=== PATIENT | female | born 1935 | race Caucasian/White ===

== ENCOUNTER 2017-08-05 08:59 | Emergency (ER) | payer MEDICARE, OTHER ==
[~2017-08-05] VITALS: Ht 152.4 cm; Wt 61.7 kg
[~2017-08-05 08:59] MED LIST: ASPIRIN EC325 MG PO; ASPIRIN EC81 MG PO; CALCIUM + VITA1 EACH PO; CALCIUM 600 +1 EACH PO; CARBIDOPA-LEVO1 EAC1 PO; CARBIDOPA-LEVO1 EAC4 PO; COLCRYS0.6 MG PO; DILTIAZEM ER180 MG PO; FLAX SEED OIL1000 MG PO; FLAXSEED OIL1000 M1 PO; HYDROCHLOROTHIA25 MG PO; IBUPROFEN200 M1 PO; INDOMETHACIN50 MG PO; LEVOTHYROXINE50 MCG PO; LODOSYN25 MG PO; OMEPRAZOLE20 MG PO; POTASSIUM CHLO10 MEQ PO; POTASSIUM CHLO20 ME1 PO; REFRESH P.M. O3.5 GM OU; SPIRONOLACTONE50 MG PO; SUPER B COMPLE150 MG PO; TYLENOL325 MG PO; ULTRAM50 MG PO; VITAMIN D250000 UNIT PO; VITAMIN D350000 UNIT PO; ZETIA10 MG PO; ZYLOPRIM300 MG PO
[2017-08-05] MEDS ORDERED: KEFLEX500 MG PO (09:42)
[2017-10-01] MEDS ORDERED: DISOPYRAMIDE P150 MG PO (11:54)
[2017-10-01] MEDS ORDERED: ALENDRONATE SOD70 MG PO (11:54)
[2017-10-01] MEDS ORDERED: ELIQUIS2.5 MG PO (11:55)
[2017-10-01] MEDS ORDERED: MAG-OXIDE400 MG PO (11:55)
== END 2017-08-05 09:53 | disposition home or self-care (01) ==
LOC: ED 08:59
DX: S90.861A Insect bite (nonvenomous), right foot, initial encounter (principal); L03.115 Cellulitis of right lower limb; E03.9 Hypothyroidism, unspecified; F17.200 Nicotine dependence, unspecified, uncomplicated; Z90.49 Acquired absence of other specified parts of digestive tract; Z90.710 Acquired absence of both cervix and uterus; Z88.0 Allergy status to penicillin; Z88.2 Allergy status to sulfonamides; Z88.5 Allergy status to narcotic agent; Z88.8 Allergy status to other drugs, medicaments and biological substances; Z91.09 Other allergy status, other than to drugs and biological substances; Z79.899 Other long term (current) drug therapy; Z79.82 Long term (current) use of aspirin; W57.XXXA Bitten or stung by nonvenomous insect and other nonvenomous arthropods, initial encounter
CPT/HCPCS: 99283

== ENCOUNTER 2017-10-21 17:22 | Emergency (ER) | payer MEDICARE, OTHER ==
[~2017-10-21] VITALS: Ht 152.4 cm; Wt 59.4 kg
[~2017-10-21 17:22] MED LIST changes: +ALENDRONATE SOD70 MG PO; +DISOPYRAMIDE P150 MG PO; +ELIQUIS2.5 MG PO; +KEFLEX500 MG PO; +MAG-OXIDE400 MG PO
[2017-10-21] MEDS ORDERED: FLAGYL500 MG PO (17:47)
[2017-10-21] MEDS ORDERED: HYDROXYZINE HCL25 MG PO (21:12)
== END 2017-10-21 21:31 | disposition home or self-care (01) ==
LOC: ED 17:22
DX: L27.0 Generalized skin eruption due to drugs and medicaments taken internally (principal); T37.8X5A Adverse effect of other specified systemic anti-infectives and antiparasitics, initial encounter; E03.9 Hypothyroidism, unspecified; G20 Parkinson's disease; Z88.0 Allergy status to penicillin; Z88.2 Allergy status to sulfonamides; Z88.5 Allergy status to narcotic agent; Z88.8 Allergy status to other drugs, medicaments and biological substances; Z79.899 Other long term (current) drug therapy
CPT/HCPCS: 80053; 85025; 96372; 99283; J3410

== ENCOUNTER 2018-12-14 12:21 | Emergency (ER) | payer MEDICARE, OTHER ==
[~2018-12-14] VITALS: Ht 152.4 cm; Wt 59.9 kg
[~2018-12-14 12:21] MED LIST changes: +FLAGYL500 MG PO; +HYDROXYZINE HCL25 MG PO
[2018-12-14] MEDS ORDERED: PRESERVISION A1 EAC3 PO (12:33)
[2018-12-14] MEDS ORDERED: MELATIN3 MG PO (12:33)
[2018-12-14] MEDS ORDERED: REQUIP2 MG PO (12:34)
[2018-12-14] MEDS ORDERED: REFRESH OPTIVE1 EAC1 OPTH (12:35)
[2018-12-14] MEDS ORDERED: ONDANSETRON ODT8 MG PO (14:21)
--- NOTE | 2018-12-14 18:39 | EKG ---
[facility] [address] [facility] [place], [place] [address] Signed Accelerated Junctional rhythm Abnormal ECG Confirmed by TUAN RAMIREZ MD ([id number]) on 12/14/2018 6:38:54 PM Electronically Signed By: TUAN RAMIREZ MD 12/14/18 1839 PATIENT NAME: MAURI VALDES Electrocardiogram DATE OF : 35 PHYSICIAN: TUAN RAMIREZ MD REPORT #: [id number] REPORT IS CONFIDENTIAL AND NOT TO BE RELEASED WITHOUT AUTHORIZATION
== END 2018-12-14 14:58 | disposition home or self-care (01) ==
LOC: ED 12:21
DX: R07.89 Other chest pain (principal); E03.9 Hypothyroidism, unspecified; I48.91 Unspecified atrial fibrillation; G20 Parkinson's disease; Z88.0 Allergy status to penicillin; Z88.2 Allergy status to sulfonamides; Z88.5 Allergy status to narcotic agent; Z91.048 Other nonmedicinal substance allergy status; Z88.8 Allergy status to other drugs, medicaments and biological substances; Z79.899 Other long term (current) drug therapy
CPT/HCPCS: 71045; 80053; 83880; 84484; 85025; 93005; 93010; 96374; 99285-25; J2405

== ENCOUNTER 2019-03-21 14:14 | Emergency (ER) | payer MEDICARE, OTHER ==
[~2019-03-21] VITALS: Ht 157.5 cm; Wt 58.5 kg
[~2019-03-21 14:14] MED LIST changes: +MELATIN3 MG PO; +ONDANSETRON ODT8 MG PO; +PRESERVISION A1 EAC3 PO; +REFRESH OPTIVE1 EAC1 OPTH; +REQUIP2 MG PO
--- NOTE | 2019-03-22 21:32 | EKG ---
[facility] [address] [facility] [place] [address] Signed Normal sinus rhythm Normal ECG Confirmed by JODY CROCKETT MD ([id number]) on 03/22/2019 9:32:42 PM Electronically Signed By: JODY CROCKETT MD 03/22/19 2132 PATIENT NAME: MAURI VALDES Electrocardiogram DATE OF : 35 PHYSICIAN: JODY CROCKETT MD REPORT #: [id number] REPORT IS CONFIDENTIAL AND NOT TO BE RELEASED WITHOUT AUTHORIZATION
--- NOTE | 2019-03-22 21:33 | EKG ---
[facility] [address] [facility] [place], [place] [address] Signed Normal sinus rhythm Normal ECG When compared with ECG of 21-MAR-2019 14:16, (Unconfirmed) No significant change was found Confirmed by JODY CROCKETT MD ([id number]) on 03/22/2019 9:33:03 PM Electronically Signed By: JODY CROCKETT MD 03/22/19 2133 PATIENT NAME: MAURI VALDES Electrocardiogram DATE OF : 35 PHYSICIAN: JODY CROCKETT MD REPORT #: [id number] REPORT IS CONFIDENTIAL AND NOT TO BE RELEASED WITHOUT AUTHORIZATION
== END 2019-03-21 18:57 | disposition home or self-care (01) ==
LOC: ED 14:14
DX: R07.89 Other chest pain (principal); E03.9 Hypothyroidism, unspecified; I48.91 Unspecified atrial fibrillation; G20 Parkinson's disease; Z90.49 Acquired absence of other specified parts of digestive tract; Z90.710 Acquired absence of both cervix and uterus; Z88.0 Allergy status to penicillin; Z88.2 Allergy status to sulfonamides; Z88.5 Allergy status to narcotic agent; Z88.8 Allergy status to other drugs, medicaments and biological substances; Z91.048 Other nonmedicinal substance allergy status; Z79.899 Other long term (current) drug therapy
CPT/HCPCS: 36415; 71045; 80053; 83735; 84484; 85025; 85610; 93005; 93010; 99285-25

== ENCOUNTER 2019-04-01 01:57 | Emergency (ER) | payer MEDICARE, OTHER ==
[~2019-04-01] VITALS: Ht 157.5 cm; Wt 58.5 kg
--- OUTSIDE RECORDS SUMMARY | 2019-04-01 02:00 | XMS ---
PreManage Notification: MAURI VALDES Security Kinesiologist Events No recent Security Events currently on file CRITERIA MET - [facility] - 2 Visits in 30 Days CARE PROVIDERS MARIMAR GOODSON Internal Medicine: Cardiovascular Disease Current PHONE: [phone] Castro Phipps MD Primary Care Current PHONE: Unknown oranahy Douglas or Hand Glass Cutter Current PHONE: Unknown Nae PHIPPS Current PHONE: Unknown Norman has no Care Guidelines for this patient. Bernardo VISIT COUNT (12 MO.) 1 [facility] 3 ROLDAN Salvador TOTAL 4 NOTE: Visits indicate total known visits. ED/UCC VISIT TRACKING (12 MO.) 04/01/2019 01:57 R[facility] Cooper [place] TYPE: Emergency COMPLAINT: - NUMBNESS 03/21/2019 14:15 [facility] [place] TYPE: Emergency COMPLAINT: - CHEST PAIN DIAGNOSES: - Parkinson's disease - Other chest pain - Hypothyroidism, unspecified - Allergy status to sulfonamides status - Allergy status to other drugs, medicaments and biological substances status - Unspecified atrial fibrillation - Other nonmedicinal substance allergy status - Acquired absence of both cervix and uterus - Other watermelon harvesting supervisor (current) drug therapy - Precordial pain - Acquired absence of other specified parts of digestive tract - Allergy status to narcotic agent status - Allergy status to penicillin 01/11/2019 03:55 [facility] [place] GROSS TYPE: Emergency DIAGNOSES: - Hypocalcemia - Weakness - Dizziness - Other pancytopenia 12/14/2018 12:22 ROLDAN Jacobs TYPE: Emergency COMPLAINT: - CHEST HEAVYNESS DIAGNOSES: - Allergy status to penicillin - Other chest pain - Other watermelon harvesting supervisor (current) drug therapy - Allergy status to other drugs, medicaments and biological substances status - Hypothyroidism, unspecified - Allergy status to narcotic agent status - Unspecified atrial fibrillation - Other nonmedicinal substance allergy status - Parkinson's disease - Allergy status to sulfonamides status INPATIENT VISIT TRACKING (12 MO.) 01/11/2019 03:55 [facility] [place] GROSS TYPE: Medical Surgical DIAGNOSES: - Parkinson's disease - Other pancytopenia - Hypocalcemia [id number]
[2019-04-01] MEDS ORDERED: PRESERVISION A1 EACH PO (02:18)
[2019-04-01] MEDS ORDERED: CARBIDOPA-LEVO1 EAC5 PO (02:21)
--- NOTE | 2019-04-01 16:12 | EKG ---
[facility] [address] [facility] [place], [place] [address] Signed Normal sinus rhythm Normal ECG When compared with ECG of 21-MAR-2019 15:27, No significant change was found Confirmed by ELIZABETH VILLEDA DO ([id number]) on 04/01/2019 4:12:31 PM Electronically Signed By: ELIZABETH VILLEDA DO 04/01/19 1612 PATIENT NAME: KEISHAMAURI KEY Electrocardiogram DATE OF : 35 PHYSICIAN: ELIZABETH VILLEDA DO REPORT #: [id number] REPORT IS CONFIDENTIAL AND NOT TO BE RELEASED WITHOUT AUTHORIZATION
== END 2019-04-01 05:00 | disposition home or self-care (01) ==
LOC: ED 01:57
DX: R53.1 Weakness (principal); E03.9 Hypothyroidism, unspecified; I48.91 Unspecified atrial fibrillation; Z88.0 Allergy status to penicillin; Z88.2 Allergy status to sulfonamides; Z88.8 Allergy status to other drugs, medicaments and biological substances; Z88.5 Allergy status to narcotic agent; Z79.899 Other long term (current) drug therapy
CPT/HCPCS: 70450; 80053; 81001; 85025; 85610; 85730; 87088; 93005; 93010; 99284-25

== ENCOUNTER 2019-09-03 10:16 | Emergency (ER) | payer MEDICARE, OTHER ==
[~2019-09-03] VITALS: Ht 157.5 cm; Wt 56.7 kg
[~2019-09-03 10:16] MED LIST changes: +CARBIDOPA-LEVO1 EAC5 PO; +PRESERVISION A1 EACH PO; +PREVACID15 M1 PO
--- OUTSIDE RECORDS SUMMARY | 2019-09-03 10:22 | XMS ---
PreManage Notification: MAURI VALDES Security Police Pilot Events No recent Security Events currently on file CRITERIA MET - [facility] CARE PROVIDERS MARIMAR GOODSON Internal Medicine: Cardiovascular Disease Current PHONE: [phone] JODY CROCKETT Internal Medicine 04/01/2019-Current LUIS DANIEL PHONE: [phone] Castro Phipps MD Primary Care Current PHONE: Unknown oranahy Case or Small Animal Veterinarian Current PHONE: Unknown Nae PHIPPS Current PHONE: Unknown Norman has no Care Guidelines for this patient. Care History Medical/Surgical 04/01/2019 [facility] - Patient is currently established with [facility]. If patient is seen in the ED during business hours. Please contact CHWs at [facility]. - Care Recommendation: This patient has had 5 or more Emergency Department visits in the last 12 months.\T\nbsp; Patient requires education on the scope and purpose of the ED as an acute care provider not a Primary Care Provider and should not be utilized for chronic conditions.\T\nbsp; These are guidelines and the provider should exercise clinical judgment when providing care. E.D. VISIT COUNT (12 MO.) 2 [facility] 5 [facility]. TOTAL 7 NOTE: Visits indicate total known visits. ED/UCC VISIT TRACKING (12 MO.) 09/03/2019 10:17 ROLDAN Jacobs TYPE: Emergency COMPLAINT: - ABD PAIN 07/08/2019 07:35 [facility] [place] GROSS TYPE: Emergency DIAGNOSES: - Unspecified atrial fibrillation - Palpitations 04/28/2019 16:14 R[facility] Cooper [place] TYPE: Emergency COMPLAINT: - ANKLE INJURY DIAGNOSES: - Acquired absence of both cervix and uterus - Unspecified atrial fibrillation - Unspecified sprain of left wrist, initial encounter - Allergy status to sulfonamides status - Acquired absence of other specified parts of digestive tract - Sprain of unspecified ligament of left ankle, init encntr - Allergy status to other antibiotic agents status - Allergy status to oth drug/meds/biol subst status - Allergy status to narcotic agent status - Pain in left ankle and joints of left foot - Allergy status to penicillin - Fall on same level, unspecified, initial encounter - Hypothyroidism, unspecified - Other alf (current) drug therapy - Other nonmedicinal substance allergy status 04/01/2019 01:57 R[facility] Cooper [place] TYPE: Emergency COMPLAINT: - NUMBNESS DIAGNOSES: - Allergy status to sulfonamides status - Allergy status to oth drug/meds/biol subst status - Other remote computer terminal operator (current) drug therapy - Weakness - Hypothyroidism, unspecified - Allergy status to penicillin - Allergy status to narcotic agent status - Unspecified atrial fibrillation 03/21/2019 14:15 [facility] Cooper [place] TYPE: Emergency COMPLAINT: - CHEST PAIN DIAGNOSES: - Parkinson's disease - Other chest pain - Hypothyroidism, unspecified - Allergy status to sulfonamides status - Allergy status to oth drug/meds/biol subst status - Unspecified atrial fibrillation - Other nonmedicinal substance allergy status - Acquired absence of both cervix and uterus - Other alf (current) drug therapy - Precordial pain - Acquired absence of other specified parts of digestive tract - Allergy status to narcotic agent status - Allergy status to penicillin [facility]2019 [facility] DIAGNOSES: - Hypocalcemia - Weakness - Dizziness - Other pancytopenia 12/14/2018 12:22 ROLDAN Jacobs TYPE: Emergency COMPLAINT: - CHEST HEAVYNESS DIAGNOSES: - Allergy status to penicillin - Other chest pain - Other alf (current) drug therapy - Allergy status to oth drug/meds/biol subst status - Hypothyroidism, unspecified - Allergy status to narcotic agent status - Unspecified atrial fibrillation - Other nonmedicinal substance allergy status - Parkinson's disease - Allergy status to sulfonamides status INPATIENT VISIT TRACKING (12 MO.) 07/08/2019 07[facility] DIAGNOSES: - Dizziness and giddiness - termite control technician (current) use of anticoagulants - Hypothyroidism, unspecified - Other specified postprocedural states - Unspecified atrial fibrillation - Personal history of dis of the nervous sys and sense organs 01/11/2019 03:55 [facility] [place] GROSS TYPE: Medical Surgical DIAGNOSES: - Parkinson's disease - Other pancytopenia - Hypocalcemia [email or web address]
[2019-09-03] MEDS ORDERED: CARBIDOPA-LEVO1 EAC5 PO (14:20)
[2019-09-03] MEDS ORDERED: ONDANSETRON ODT4 MG PO (15:26)
== END 2019-09-03 15:43 | disposition home or self-care (01) ==
LOC: ED 10:16
DX: R10.32 Left lower quadrant pain (principal); E03.9 Hypothyroidism, unspecified; I48.91 Unspecified atrial fibrillation; Z88.0 Allergy status to penicillin; Z88.2 Allergy status to sulfonamides; Z88.5 Allergy status to narcotic agent; Z88.8 Allergy status to other drugs, medicaments and biological substances; Z91.048 Other nonmedicinal substance allergy status; Z88.6 Allergy status to analgesic agent; Z79.899 Other long term (current) drug therapy
CPT/HCPCS: 74176; 80053; 81001; 83690; 85025; 85610; 96361; 96374; 96375; 96376; 99284-25; J2270; J2405; J7040

== ENCOUNTER 2019-11-20 09:56 | Emergency (ER) | payer MEDICARE, OTHER ==
[~2019-11-20] VITALS: Ht 157.5 cm; Wt 56.7 kg
[~2019-11-20 09:56] MED LIST changes: +ONDANSETRON ODT4 MG PO
--- OUTSIDE RECORDS SUMMARY | 2019-11-20 10:00 | XMS ---
PreManage Notification: MAURI VALDES Security Screw Remover Events No recent Security Events currently on file CRITERIA MET - [facility] CARE PROVIDERS MARIMAR GOODSON Internal Medicine: Cardiovascular Disease Current PHONE: [phone] JODY CROCKETT Internal Medicine 04/01/2019-Current LUIS DANIEL PHONE: [phone] Castro Phipps MD Primary Care Current PHONE: Unknown oranahy Case or Reinforcing Steel Placer Current PHONE: Unknown Nae PHIPPS Current PHONE: Unknown Norman has no Care Guidelines for this patient. Care History Medical/Surgical 04/01/2019 [facility] - Patient is currently established with [facility]. If patient is seen in the ED during business hours. Please contact CHWs at [facility]. - Care Recommendation: This patient has [...] COUNT (12 MO.) 2 [facility] 6 [facility]. TOTAL 8 NOTE: Visits indicate total known visits. ED/UCC VISIT TRACKING (12 MO.) 11/20/2019 09:57 ROLDAN Jacobs TYPE: Emergency COMPLAINT: - POSS ALLERGIC REACTION 09/03/2019 10:17 ROLDAN Jacobs TYPE: Emergency COMPLAINT: - ABD PAIN DIAGNOSES: - Other senior care (current) drug therapy - Allergy status to analgesic agent status - Allergy status to sulfonamides status - Unspecified atrial fibrillation - Left lower quadrant pain - Other nonmedicinal substance allergy status - Allergy status to penicillin - Hypothyroidism, unspecified - Allergy status to oth drug/meds/biol subst status - Allergy status to narcotic agent status 07/08/2019 07:35 [facility] [place] GROSS TYPE: Emergency DIAGNOSES: - Unspecified atrial [...] initial encounter - Hypothyroidism, unspecified - Other senior care (current) drug therapy - Other nonmedicinal substance allergy status 04/01/2019 01:57 R[facility] Cooper [place] TYPE: Emergency COMPLAINT: - NUMBNESS DIAGNOSES: - Allergy status to sulfonamides status - Allergy status to oth drug/meds/biol subst status - Other intermodal truck driver (current) drug therapy - Weakness - Hypothyroidism, unspecified - Allergy status to penicillin - Allergy status to narcotic agent status - Unspecified atrial fibrillation 03/21/2019 14:15 ROLD[facility] Jacobs TYPE: Emergency COMPLAINT: - CHEST PAIN DIAGNOSES: - Parkinson's disease - Other chest pain - Hypothyroidism, unspecified - Allergy status to sulfonamides status - Allergy status to oth drug/meds/biol subst status - Unspecified atrial fibrillation - Other nonmedicinal substance allergy status - Acquired absence of both cervix and uterus - Other intermodal truck driver (current) drug therapy - Precordial pain - Acquired absence of other specified parts of digestive tract - Allergy status to narcotic agent status - Allergy status to penicillin [facility]11[facility]2019 03[facility] DIAGNOSES: - Hypocalcemia - Weakness - Dizziness - Other pancytopenia 12/14/2018 12:22 ROLDAN Jacobs TYPE: Emergency COMPLAINT: - CHEST HEAVYNESS DIAGNOSES: - Allergy status to penicillin - Other chest pain - Other senior care (current) drug therapy - Allergy status to oth drug/meds/biol subst status - Hypothyroidism, unspecified - Allergy status to narcotic agent status - Unspecified atrial fibrillation - Other nonmedicinal substance allergy status - Parkinson's disease - Allergy status to sulfonamides status INPATIENT VISIT TRACKING (12 MO.) 07/08/2019 07:35 [facility] DIAGNOSES: - Dizziness and giddiness - joint terminal attack controller (current) use of anticoagulants - Hypothyroidism, unspecified - Other specified postprocedural states - Unspecified atrial fibrillation - Personal history of dis of the nervous sys and sense organs [facility]11/2019 03[facility] DIAGNOSES: - Parkinson's disease - Other pancytopenia - Hypocalcemia [email or web address]
[2019-11-20] MEDS ORDERED: MACROBID 100 M100 MG PO (13:37)
== END 2019-11-20 14:03 | disposition home or self-care (01) ==
LOC: ED 09:56
DX: T78.3XXA Angioneurotic edema, initial encounter (principal); T36.1X5A Adverse effect of cephalosporins and other beta-lactam antibiotics, initial encounter; E03.9 Hypothyroidism, unspecified; I48.91 Unspecified atrial fibrillation; Z88.0 Allergy status to penicillin; Z88.2 Allergy status to sulfonamides; Z88.5 Allergy status to narcotic agent; Z91.048 Other nonmedicinal substance allergy status; Z79.899 Other long term (current) drug therapy
CPT/HCPCS: 70490; 80053; 85025; 87880; 96374; 96375; 99284-25; J1100; J1200

== ENCOUNTER 2020-06-03 06:55 | Day surgery (SDC) | payer MEDICARE, OTHER ==
[~2020-06-03] VITALS: Ht 157.5 cm; Wt 55.8 kg
[~2020-06-03 06:55] MED LIST changes: +MACROBID 100 M100 MG PO; +SOTALOL80 M1 PO
--- NOTE | 2020-06-03 08:55 | NUR ---
06/03/20 0855 Jonelle Faust 0848-PATIENT ARRIVED TO PACU ON 6L MASK NONAROUSABLE. ORAL AIRWAY IN PLACE. RR EVEN. APACED. IVF INFUSING. PATIENT LAYING LEFT LATERAL ABDOMEN SOFT. 0851-PATIENT STARTING TO COUGH ORAL AIRWAY REMOVED. PATIENT DROWSY. RR EVEN.
--- NOTE | 2020-06-07 11:47 | PATH ---
[facility] [address] [place], [place] [address] Signed SPECIMEN(S): A RECTUM SPECIMEN SOURCE: A. RECTUM CLINICAL HISTORY: Colonoscopy with possible biopsies. Chronic constipation. Postop: Mild proctitis, internal hemorrhoids. MICROSCOPIC DESCRIPTION: Histologic sections of all submitted blocks are examined by light microscopy. These findings, together with the gross examination, support the pathologic diagnosis. FINAL PATHOLOGIC DIAGNOSIS: Rectum, biopsy: - Rectal mucosa with crypt architectural distortion. - Negative for active, chronic, or microscopic colitis. - Negative for dysplasia or malignancy. COMMENT: Sections demonstrate fragments of rectal mucosa with crypt architectural distortion, but no basal lymphoplasmacytosis, Paneth cell metaplasia, active inflammation, ulcers, or granulomata are seen. The findings are non-specific and could represent prior episodes of injury and/or inflammation. NAL:cml:C2NR GROSS DESCRIPTION: The specimen, labeled "EJ, rectum biopsy," is received in formalin and consists of three solorio soft tissue fragments that measure 0.1 cm in greatest dimension. The specimen is entirely submitted in cassette (A1). JS (under the direct supervision of a pathologist) The Gross Description was prepared using a voice recognition system. The report was reviewed for accuracy; however, sound-alike word errors, addition and/or deletions may occur. If there is any question about this report, please contact Client Services. PERFORMING LABORATORY: The technical component was performed by [facility], [address] [place] [id number] (Data Solutions Architect: Fabiana Kerr MD; CLIA# [id number]). PATIENT NAME: MAURI VALDES PATHOLOGY DATE OF : 35 REPORT #: [id number] PHYSICIAN: ELBA GODWIN PCP: JODY CROCKETT MD REPORT IS CONFIDENTIAL AND NOT TO BE RELEASED WITHOUT AUTHORIZATION [facility] [address] [place], [place] [address] Signed Professional interpretation was performed by [facility], [address] [address] (CLIA# [id number]). Diagnostician: Nathaly Soni MD Pathologist Electronically Signed 06/07/2020 Copies: ~ PATIENT NAME: MAURI VALDES PATHOLOGY DATE OF : 35 REPORT #: [id number] PHYSICIAN: ELBA GODWIN PCP: JODY CROCKETT MD REPORT IS CONFIDENTIAL AND NOT TO BE RELEASED WITHOUT AUTHORIZATION
--- NOTE | 2020-06-08 18:28 | OR ---
[facility] [address] [place], [place] [address] Signed DATE OF OPERATION: 06/03/2020 SURGEON: Major Parekh MD PREOPERATIVE DIAGNOSES: Left lower abdominal pain, constipation. POSTOPERATIVE DIAGNOSES: Mild proctitis with internal hemorrhoids. No evidence of stricture or neoplasm. No sign of extensive diverticulosis. PROCEDURE: Total colonoscopy to cecum with biopsy of rectum. ANESTHESIA: Intravenous sedation, propofol infusion; Major Fallon CRNA. 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 She does have Parkinson disease, which no doubt contributes to the symptoms. She did have C. difficile colitis 2 years ago. She does not have diarrhea currently, most dominantly constipation. She is taking MiraLAX. She notes that 20 minutes after eating, she has left lower abdominal pain consistent with a pronounced gastrocolic reflex. She last underwent colonoscopy in 2014, which was rather unremarkable. A CT scan in August 2019, did not show acute diverticulitis. She is admitted at this time to undergo colonoscopy. She understands the risks of bleeding, infection, and perforation and wished to proceed. FINDINGS: The prep was good overall. Complete colonoscopy was undertaken to the cecum. Colon was rather redundant. She had no evidence of stricture, neoplasm, or polyps. Certainly, no cancer. No obvious colitis, though she did have mild proctitis and internal hemorrhoids. DESCRIPTION OF PROCEDURE: The patient was brought to the endoscopy suite and placed in lateral decubitus position, given intravenous sedation to the point of slurred speech and nystagmus. Digital rectal examination was normal for age. An Olympus video colonoscope was passed in the rectum and manipulated throughout the colon. The colon was somewhat redundant, but with time, scope was able to pass beyond the hepatic flexure, ultimately to the cecum with good Electronically Signed By: MAJOR PAREKH MD 06/08/20 1828 PATIENT NAME: MAURI VALDES OPERATIVE REPORT DATE OF : 35 REPORT #: [id number] PHYSICIAN: MAJOR PAERKH MD PCP: JODY CROCKETT MD REPORT IS CONFIDENTIAL AND NOT TO BE RELEASED WITHOUT AUTHORIZATION [facility] [address] [place], [place] [address] Signed visualization of the ileocecal valve and the cecum. The scope was withdrawn from that point and careful inspection upon withdrawal of scope showed no sign of abnormality except in the rectum where there was mild proctitis. Biopsies were obtained. Retroflexed view was otherwise normal, except for internal hemorrhoidal changes. The scope was removed and the patient was taken to the recovery room in good condition. CONCLUDING DIAGNOSIS: No evidence of neoplasm or stricture or profound diverticular disease. Her left lower abdominal pain and chronic constipation are likely related and worsened, there was no doubt by her Parkinson disease. We would recommend continued daily use of MiraLAX. A fiber supplement may or may not be beneficial. She will return to the ongoing care of Dr. Crockett. MD DARIEN Silver/DRE /[id number] cc: Jody Crockett MD Copies: JODY CROCKETT MD ~ Electronically Signed By: MAJOR PAREKH MD 06/08/20 1828 PATIENT NAME: MAURI VALDES OPERATIVE REPORT DATE OF : 35 REPORT #: [id number] PHYSICIAN: MAJOR PAREKH MD PCP: JODY CROCKETT MD REPORT IS CONFIDENTIAL AND NOT TO BE RELEASED WITHOUT AUTHORIZATION
== END 2020-06-03 09:50 | disposition home or self-care (01) ==
LOC: DS 06:55
PROVIDERS: Surgery
PROC: 0DBP8ZX Excision of Rectum, Via Natural or Artificial Opening Endoscopic, Diagnostic (ICD-10-PCS; principal; 2020-06-03 07:30)
DX: K62.89 Other specified diseases of anus and rectum (principal); E03.9 Hypothyroidism, unspecified; G20 Parkinson's disease; Z88.5 Allergy status to narcotic agent; Z88.0 Allergy status to penicillin; Z88.8 Allergy status to other drugs, medicaments and biological substances; Z88.2 Allergy status to sulfonamides; Z79.899 Other long term (current) drug therapy; Z79.01 Long term (current) use of anticoagulants
CPT/HCPCS: 88305; J1956; J2704; J7121

== ENCOUNTER 2021-03-19 11:02 | Emergency (ER) | payer MEDICARE, OTHER ==
[~2021-03-19] VITALS: Ht 157.5 cm; Wt 55.8 kg
--- OUTSIDE RECORDS SUMMARY | 2021-03-19 11:04 | XMS ---
PreManage Notification: MAURI VALDES Security Displayer Merchandise Events No recent Security Events currently on file CRITERIA MET - [facility] - Has Care Guidelines - [facility] - 2 Visits in 30 Days CARE PROVIDERS MARIMAR GOODSON Internal Medicine: Cardiovascular Disease Current PHONE: [phone] JODY CROCKETT Internal Medicine 11/21/2019-Current PHONE: [phone] Norman has no Care Guidelines for this patient. Care History Medical/Surgical 11/21/2019 [facility] Patient stated she spoke with Dr. Crockett office about follow up visit.\T\nbsp; Next appointment not until 01/23/2020.\T\nbsp; Requested to have patient scheduled 7-10 days after ED visit for follow up . 04/01/2019 [facility] - Patient is currently established with [facility]. If patient is seen in the ED during business hours. Please contact CHWs at [facility]. - Care Recommendation: This patient has had [...] providing care. E.D. VISIT COUNT (12 MO.) 1 [place] 1 R[facility]AN Salvador TOTAL 2 NOTE: Visits indicate total known visits. ED/UCC VISIT TRACKING (12 MO.) 03/19/2021 11:02 R[facility] [place] TYPE: Emergency COMPLAINT: - ALTERED 03/17/2021 02:57 [place] [facility] [place] TYPE: Emergency DIAGNOSES: - Tremors - Tremor, unspecified INPATIENT VISIT TRACKING (12 MO.) No inpatient visits to display in this time frame [id number]
[2021-03-19] MEDS ORDERED: NITROSTAT0.3 MG SL (14:01)
[2021-03-19] MEDS ORDERED: EPINEPHRIN0.15 MG/01 IM (14:01)
[2021-03-19] MEDS ORDERED: OMEPRAZOLE20 M2 PO (14:01)
[2021-03-19] MEDS ORDERED: GAVILAX17 GM PO (14:02)
[2021-03-19] MEDS ORDERED: K-TAB ER20 MEQ PO (14:02)
--- NOTE | 2021-03-20 20:11 | EKG ---
[facility] [address] [facility] [place] [address] Signed Atrial-paced rhythm with prolonged AV conduction Abnormal ECG When compared with ECG of 01-JUN-2020 17:33, No significant change was found Confirmed by JODY CROCKETT MD ([id number]) on 03/20/2021 8:11:15 PM Electronically Signed By: JODY CROCKETT MD 03/20/212010 PATIENT NAME: MAURI VALDES Electrocardiogram DATE OF : 35 PHYSICIAN: JODY CROCKETT MD REPORT #: [id number] REPORT IS CONFIDENTIAL AND NOT TO BE RELEASED WITHOUT AUTHORIZATION
== END 2021-03-19 14:05 | disposition home or self-care (01) ==
LOC: ED 11:02
DX: G20 Parkinson's disease (principal); E03.9 Hypothyroidism, unspecified; I48.91 Unspecified atrial fibrillation; Z91.030 Bee allergy status; Z88.0 Allergy status to penicillin; Z88.2 Allergy status to sulfonamides; Z88.5 Allergy status to narcotic agent; Z88.8 Allergy status to other drugs, medicaments and biological substances; Z88.1 Allergy status to other antibiotic agents; Z91.040 Latex allergy status; Z79.899 Other long term (current) drug therapy
CPT/HCPCS: 70450; 71045; 80053; 81001; 83735; 84484; 85025; 93005; 93010; 99285-25

== ENCOUNTER 2022-06-17 11:38 | Inpatient (IN) | payer MEDICARE, OTHER ==
[~2022-06-17] VITALS: Ht 157.5 cm; Wt 50.3 kg
[~2022-06-17 11:38] MED LIST changes: +EPINEPHRIN0.15 MG/01 IM; +GAVILAX17 GM PO; +K-TAB ER20 MEQ PO; -MELATIN3 MG PO; +MELATONIN3 MG PO; +NITROSTAT0.3 MG SL; +OMEPRAZOLE20 M2 PO; -REFRESH OPTIVE1 EAC1 OPTH; +SOOTHE XP 1%-41 EACH OU; -SOTALOL80 M1 PO; +SOTALOL80 MG PO
[2022-06-17] MEDS ORDERED: ELIQUIS5 MG PO (13:43)
--- NOTE | 2022-06-17 15:30 | NUR ---
PT ASSESSMENT COMPLETED. DAUGHTER AND YAMILETH AT BEDSIDE. PT. IS HAVING TROUBLE SWALLOWING PILLS AND COUGHS SITTING UP. MD UPDATED AND WILL CRUSH PILLS. ASSISTED WITH POSITIONING FOR COMFORT. SHE C/O 8/10 PAIN AND ADMIN MEDS. IV WNL AND FLUSHES WELL.
--- NOTE | 2022-06-17 16:00 | NUR ---
16G POLISH CONSTANTINO CATH PLACED. PT. TOLERATED WELL. NO IODINE USED DUE TO ALLERGY. PT. C/O 06/24 PAIN AFTER AND PAIN MEDS ADMIN. WLL CONTINUE TO MONITOR.
--- NOTE | 2022-06-17 16:53 | EKG ---
[facility] [address] [facility] [place] [address] Signed Atrial-paced rhythm with prolonged AV conduction Abnormal ECG When compared with ECG of 19-MAR-2021 11:24, No significant change was found Confirmed by JODY CROCKETT MD ([id number]) on 06/17/2022 4:53:06 PM Electronically Signed By: JODY CROCKETT MD 06/17/221652 PATIENT NAME: MAURI VALDES Electrocardiogram DATE OF : 35 PHYSICIAN: JODY CROCKETT MD REPORT #: [id number] REPORT IS CONFIDENTIAL AND NOT TO BE RELEASED WITHOUT AUTHORIZATION
--- NOTE | 2022-06-17 18:31 | NUR ---
allevyn placed on coccyx and retail supervisor contacted to get egg crate mattress since the patient is unable to reposition and high risk for skin breakdown. will continue to monitor. skin grossly intact at this time.
--- NOTE | 2022-06-17 19:20 | NUR ---
SHIFT REPORT RECEIVED FROM DAYSHIFT NEDA NOGUEIRA AT BEDSIDE. pt AWAKE AND RESTING IN BED, pt QUIET. NODS YES OR NO APPROPRIATELY TO ANSWERS. IV SITE WNL, FLUIDS INFUSING DIRECTED. NO NEEDS OR CONCERNS VERBALIZED. WILL MONITOR FOR CHANGES.
--- NOTE | 2022-06-17 20:00 | NUR ---
pt'S DAUGHTER GOLDEN CALLED AND ASKED FOR UPDATE ON HER MOTHER. UPDATE PROVIDED, POC DISCUSSED AND QUESTIONS ANSWERED. DAUGHTER ASKED IF ALEVYN WAS IN PLACE AND DAUGHTER WAS ASSURED ALLEVYN IS IN PLACE. DAUGHTER ALSO ASKED FOR EGGCRATE TO BE PLACED FOR SKIN BREAKDOWN PREVENTION, NO REDDNESS TO COCCYX PER SHIFT REPORT. NUMBERS TO REACH FAMILY INCLUDE [phone] AND [phone].
--- NOTE | 2022-06-17 21:00 | NUR ---
MEDICATIONS ADM. PER JOYCE, IN APPLESAUSE. ENCOURAGE PT TO TUCK CHIN, SHE COUGHED SL AFTER DRINK WATER. PT STATED SHE WAS NOT IN PAIN.
--- NOTE | 2022-06-17 22:38 | NUR ---
ROUNDED ON pt, pt AWAKE AND RESTING QUIETLY IN BED. NO DISTRESS NOTED, pt DENEIS NEED FOR PAIN MEDICATION AT THIS TIME. IV SITE WNL, FLUIDS INFUSING DIRECTED. pt UPDATED AND DAUGHTER GOLDEN CALLED AND ASKED FOR UPDATE AND UPDATE WAS PROVIDED, OKAY PER pt. NO ADDITIONAL NEEDS, EGGCRATE IN ROOM PER REQUEST OF FAMILY. CALL LIGHT IN REACH.
--- NOTE | 2022-06-17 22:51 | NUR ---
NEDA MAXWELL TO TAKE OVER pt CARE AT THIS TIME. REPORT GIVEN AND QUESTIONS ANSWERED, CALL LIGHT IN REACH.
--- NOTE | 2022-06-17 23:14 | NUR ---
MEDICATED IV FOR PAIN, PLAN TO REPOSITION PT ON AN EGG CRATE MATTRESS, ANTICIPATE INCREASE IN PAIN.
--- NOTE | 2022-06-18 | NUR ---
PATIENT APPEARED TO TOLERATE MOVEMENT WITH PLACEMENT OF EGG CRATE, LOG ROLLING PATIENT FROM SIDE TO SIDE WITH 3 PERSON ASSIST. PLACED COMPRESSION SOCKS, SCDS, HEEL PROTECTION, AND ICE PER ORDERS. LUNG SOUNDS DIMINISHED IN BASES, ENCOURAGED PATIENT TO COUGH AND DEEP BREATH. NO OTHER NEEDS AT THIS TIME.
--- NOTE | 2022-06-18 02:00 | NUR ---
ADMINISTERED MEDICATION PER MAR. UPON ENTERING THE ROOM PATIENT APPEARS CALM WATCHING TELEVISION. RATES PAIN 2/10 ON PAIN SCALE, REPORTS TOLERABLE. PATIENT VERBALIZES THAT EGG CRATE FEELS GOOD. CONTINUE TO CUE PATIENT WITH TUCKING CHIN WHEN TAKING MEDICATIONS CRUSHED WITH PUDDING. APPEARS TO BE SWALLOWING WELL. REPOSITIONED PATIENT WITH PILLOWS TO LEFT SIDE. NO OTHER NEEDS AT THIS TIME.
--- NOTE | 2022-06-18 06:41 | NUR ---
PATIENT REPOSITIONED TO BACK FROM SIDE. PATIENT REQUESTING ITEMS FROM, CALL TO DAUGHTER WHO IS GOING TO BRING HER PERSONAL BELONGINGS IN. PATIENT REPORTS PAIN WELL CONTROLLED, ADMINISTERED TYLENOL CRUSHED IN PUDDING. PATIENT STATES " I AM FEELING ALOT BETTER TODAY"
--- NOTE | 2022-06-18 07:00 | NUR ---
Bedside report received from Ameena RED. Pt resting in bed watching tv. A+O. On room air. Pt states tolerable level of pain at this time. IVF infusing WNL. No needs at this time. Call light in reach.
--- NOTE | 2022-06-18 07:01 | NUR ---
PATIENT USED CALL LIGHT AND ALERTED NURSE THAT "MY PAIN IS BACK" PATIENT REQUESTING PAIN MEDICAITON. ADMINISTERED IV DILAUDID PER DEC. PATIENT NOW RESTING WITH EYES CLOSED.
--- NOTE | 2022-06-18 08:06 | NUR ---
Scheduled medications administered along with PRN tramadol for 9/10 R hip pain. Assessment complete- R leg shorter compared to L. CMS intact bilaterally. Cap refill intact. Yoel bautista, SCDs bilat. Ice pack applied to R hip/femur. Pt able to take pills crushed with pudding with no aspiration noted. Pt states no needs at this time. Call light in reach.
--- NOTE | 2022-06-18 09:56 | NUR ---
Rounded on patient to assess pain, pt states tramadol was effective, denies need for other PRN meds at this time. I/Os complete, sagastume emptied of clear yellow urine. Pt A+O. No needs, call light in reach.
[2022-06-18] MEDS ORDERED: NITROGLYCERIN0.4 MG SL (11:04)
[2022-06-18] MEDS ORDERED: LEVOTHYROXINE75 MCG PO (11:05)
--- NOTE | 2022-06-18 11:12 | NUR ---
PATIENT IN BED VISITING WITH FAMILY. NURSE ARSENIO DID I/O'S, VITALS ARE COMPLETED. PATIENT HAS NO OTHER NEEDS AT THIS TIME. CALL LIGHT WITHIN REACH.
--- NOTE | 2022-06-18 12:10 | NUR ---
Administered scheduled meds. Pt states having no pain at this time and has no needs. Daughter at bedside, updated on plan for surgery tomorrow.
--- NOTE | 2022-06-18 14:34 | NUR ---
Scheduled tylenol administered. Pt states no pain at this time. CMS intact, SCDs over gal hose in place. Pt worked with physical therapy, her family at bedside, no needs at this time.
--- NOTE | 2022-06-18 16:48 | NUR ---
Scheduled medications administered, pt requests medication for nausea, PRN zofran administered. Dr Barrios in room to assess patient. Pt states no bowel movements since prior to admission. Family at bedside, updated regarding plan for surgery.
--- NOTE | 2022-06-18 17:34 | NUR ---
Lactulose provided. pt attempts to use bedpan with no BM, is passing gas however. Pt refuses dinner and states her stomach is upset. Daughter at bedside.
--- NOTE | 2022-06-18 20:55 | NUR ---
INTO ROOM TO CHECK ON PATIENT. PATIENT REQUESTING PAIN MEDICAITON PAIN 7/10 ON PAIN SCALE. ADMINISTERED TRAMADOL PO PER MAR AND OTHER HS MEDICATIONS. PATIENT DID WELL TAKING ONE PILL AT A TIME WITH WATER, PATIENT TUCKING CHIN. PROVIDED ENSURE. NO OTHER NEEDS AT THIS TIME.
--- NOTE | 2022-06-18 22:31 | NUR ---
INTO ROOM, PATIENT COMPLAINING OF NAUSEA. STATES " THE MEDICATION IS UPSETTING MY STOMACH". HAD LACTULOSE ADMINISTERED EARLIER IN THE DAY AND HAS NOT HAD A BOWEL MOVEMENT YET. ABDOMEN IS SOFT TO PALPATION AND BOWEL TONES ACTIVE. ADMINISTERED ZOFRAN IV PER MAR. PATIENT THEN ASKED IF I WOULD GET HER WHEELCHAIR OUT OF THE GARAGE, APPEARS CONFUSED TO HER SURROUNDINGS. THEN ASKED WHERE HER DOG WAS. I REASSURED HER THAT HER SON WAS CARING FOR HER DOG. THE PATIENT THEN SAID " I AM SO NERVOUS FOR SURGERY TOMORROW" PROVIDED EDUCAITON ON WHAT TO EXPECT. WITH AUSCULTATION OF THE LUNGS, NOTED FINE CRACKLES IN LOWER BASES. PROVIDED PATIENT WITH IS, PATIENT ABLE TO FLOAT THE BEVEL TO 1,000 ML. LUNG SOUNDS NOW CLEAR. WILL CONTINUE TO ENCOURAGE PATIENT TO USE IS.
--- NOTE | 2022-06-18 23:19 | NUR ---
REPOSITIONED PATIENT IN BED WITH PILLOWS, REMOVED PATIENT TAISHA TANK. NEW LINEN SKIN APPEARS INTACT, NOTED RED AREA ON SKIN WHERE CATHETER TUBING LAYING ACROSS THIGH, REPOSITIONED CONSTANTINO, ICE REMOVED, SKIN APPEARS RED. PATIENT REQUESTED BREAK FROM ICE. HAS HAD IT ON CONTINIOUSLY THROUGHOUT DAY. PROVIDED PATIENT WITH NIGHT CARES. HEARING AIDS PLACED ON BLENDING TANK TENDER. PATIENT RATES PAIN 2-3 OUT OF 10 AND STATES " I AM FEELING PRETTY COMFORTABLE. PATIENT ALSO REPORTED NAUSEA HAS DECREASED AND ZOFRAN WAS EFFECTIVE. CALL LIGHT WITHIN REACH, PATIENT USED IS. CALL LIGHT WITHIN REACH. NO OTHER NEEDS AT THIS TIME.
--- NOTE | 2022-06-19 02:32 | NUR ---
ADMINISTERED SINEMET PO PER MAR WITH A SMALL SIP OF WATER. PATIENT ABLE TO SWALLOW PILL AND TOLERATED WELL. PATIENT THEN REQUESTED PAIN MEDICAITON, PAIN 7/10 ON PAIN SCALE AFTER REPOSITIONING. ADMINISTERED 0.25 MG IV DILAUDID PER DEC. PATIENT APPEARS CALM, RESTING BACK IN BED AND CONVERSING EASILY. REINFORCED IV SITE WITH FOAM TAPE, TO PROVIDE A GENTLE ADHESIVE TO FRGAILE SKIN. PATIENT DID NOT LIKE THE KERLEX PLACED AROUND IV SITE EARLIER IN THE SHIFT. CALL LIGHT WTHIN REACH. LIGHTS DIM. NO OTHER NEEDS AT THIS TIME.
--- NOTE | 2022-06-19 07:54 | NUR ---
Admin zofran 4mg IV for reports of nausea.
--- NOTE | 2022-06-19 08:04 | NUR ---
Patient in bed resting, a&ox4. Patient has family at bedside. Patient and family updated regarding plan of care for surgery this am. No current needs.
--- NOTE | 2022-06-19 08:21 | NUR ---
PATIENT HAS FAMILY IN THE ROOM, RN FROM OR IN ROOM GOING OVER A PRE SURGICAL QUESTIONAIR, PATIENT WILL BE GOING TO HIP SURGERY AT 0900, CALL LIGHT WITHIN REACH, FAMILY WAS STILL IN THE ROOM WITH THIS CABLE TENDER LEFT
--- NOTE | 2022-06-19 08:55 | NUR ---
Patient left floor for surgery.
--- NOTE | 2022-06-19 11:12 | NUR ---
06/19/22 1112 Jonelle Faust 1104-PATIENT ARRIVED TO PACU ON 6L MASK NONAROUSABLE ORAL AIRWAY IN PLACE RR EVEN. APACED. IVF INFUSING. RIGHT HIP DRESSING CDI ICE IN PLACE. PATRICE HOSE BLE PLACED AND SCDS IN PLACE.
[2022-06-19] MEDS ORDERED: ONDANSETRON ODT4 MG PO (11:59)
[2022-06-19] MEDS ORDERED: SENNA LAX8.6 MG PO (12:18)
[2022-06-19] MEDS ORDERED: POTASSIUM99 M1 PO (12:18)
--- NOTE | 2022-06-19 12:20 | NUR ---
PATIENT ARRIVED BACK TO FLOOR AFTER HER PROCEDURE, POST OP VITALS ARE DONE FOR THE FIRST HOUR, PATIENT IS IN HER ROOM WITH HER FAMILY
[2022-06-19] MEDS ORDERED: EPINEPHRIN0.3 MG/0.3 IM (12:31)
[2022-06-19] MEDS ORDERED: CARBIDOPA-LEVO1 EAC1 PO ×2 (12:33→12:34)
--- NOTE | 2022-06-19 12:40 | NUR ---
Patient back to medical floor from surgery. Patient sleepy, arousable to verbal stimuli. Patient denies pain at this time. Per reports she has a spinal during the surgical case. Right hip dressing is CDI at this time, ice over incision with cloth barrier in use. CMS intact, scd's and gal hose in place. Bed alarm intact. Patient is on 2L oxugen per nc, sp02 92%, cpox intact.
[2022-06-19] MEDS ORDERED: PRESERVISION A1 EAC3 PO (12:45)
--- NOTE | 2022-06-19 13:06 | NUR ---
Patient continues to rest in bed, awakes to verbal stimuli. Patient reports her pain is 0/10 at this time. Patient states she has full sensation to lower legs/knees. She reports right hip remains numb. Vital are stable at this time. Patient is on .5L oxygen per nc, spo2 96%. Bed alarm intact.
--- NOTE | 2022-06-19 13:24 | NUR ---
Patient reports she is not yet ready to take po medications. Provided jello and ensure to patient at this time.
--- NOTE | 2022-06-19 16:11 | NUR ---
Patient resting in bed, no distress, respirations even and non labored. Patient's pain remains tolerable. Dressing to right hip is CDI. Patient tolerated and ensure well. No current needs. Personal supplies and call light within reach.
--- NOTE | 2022-06-20 03:00 | NUR ---
PATIENT CALLED TO USE THE FRACTURE LANDON. PATIENT WAS NOT ABLE TO GO. PATIENT ASKED SOMETHING TO HELP HAVE A BM. HIGH LIFT MULE OPERATOR HEARD AND STATED PATIENT IS GETTING IT. PATIENT IS OFF FROM BED LANDON.
--- NOTE | 2022-06-20 04:10 | NUR ---
PATIENT AWAKE, REPORTS NO PAIN. PATIENT VERBALIZES NOT HAPPY THAT SHE IS GETTING ONE SENNA STOOL SOFTENER AND NOT TWO. PATIENT CALLED SON ASKING FOR A SUPPOSITORY. WHEN ASKING PATIENT IF SHE HAS PRESSURE OR PAIN, PATIENT DENIES. STATES " I AM PASSING ALOT OF GAS". PROVIDED PATIENT WITH SOME APPLE JUICE TO DRINK UNTIL MORNING WHEN BOWEL REGIME CAN BE REVIEWED BY NURSING AND HOPSITALIST. PATIENT AGREES TO PLAN OF CARE. PATIENT ALSO APPEARS CONFUSED WITH SETTING, SHE VERBALIZES BEING IN THE HOSPITAL, BUT ASKS FOR THINGS THAT ARE AT HER HOUSE. PROVIDING REASSURANCE AND REORIENTATION. PATIENT PLEASANT, AND APPEARS CALM. DRESSING TO LEFT HIP APPEARS C/D/I WITH ICE IN PLACE.
--- NOTE | 2022-06-20 04:41 | NUR ---
0315- Pt awake, spilled water on herself, changed out gown. Pt oriented to time and place.
--- NOTE | 2022-06-20 06:00 | NUR ---
PATIENT AWAKE IN BED, APPEARS INCREASINGLY PLEASANTLY CONFUSED. FOLDING BLANKETS AND ASKING ME TO PUT THEM IN HER DRESSER. THEN ASKING FOR FRANCIS TO FILL HER PILL BOX. UNABLE TO REORIENT HER TO HOSPITAL SETTING. BED ALARM ON. TV TURNED ON FOR DISTRACTION. DRESSING TO LEFT HIP C/D/I, ICE IN PLACE. PATIENT DRINKING FLUIDS. BED RAILS UP.
--- NOTE | 2022-06-20 07:28 | NUR ---
Spoke with Madison Gibson, pt's medical rep. by phone. She had called and left a message at 6:40 this am. She states she is pts medical rep and has spoken with the family and Dr. Parekh. All would like pt to go to [facility] on dc. Pt 3rd night for IP stay was last night. Faxed chart to Frida at [facility]. Will speak with Dr. Parekh this am to see when pt is dischargable.
--- NOTE | 2022-06-20 07:35 | NUR ---
Report received from Ameena RED. Pt resting in bed, alert, forgetful. Pt denies pain to R hip. Dressing visualized, actecote in place, C/D/I. No needs at this time. Call light in reach.
--- NOTE | 2022-06-20 09:20 | NUR ---
Scheduled medications administered, assessment complete. Pt able to take pills whole, one at a time, with water and applesauce. Pt denies pain at this time at rest. Dressing to R hip C/D/I, ice pack in place, teds and SCDs. CMS intact. Daughter at bedside, attentive to pt. VSS. Morton cath in place.
--- NOTE | 2022-06-20 11:22 | NUR ---
Patient working with physical therapy. No needs from this RN at this time.
--- NOTE | 2022-06-20 12:14 | NUR ---
Scheduled medications administered, pt states not having any pain at this time. IVF infusing WNL. Pt sitting up in chair after PT. Daughter at bedside.
--- NOTE | 2022-06-20 13:52 | NUR ---
PT ALERT, SITTING IN CHAIR WITH DAUGHTER IN RM. PT WOULD LIKE FR HUBBARD TO VISIT FOLLOWING MASS TODAY. PT IS A MEMBER OF [employer]. I WILL NOTIFY [facility] HU[facility]. FLORINA MCKEON WILL FOLLOW
--- NOTE | 2022-06-20 14:20 | NUR ---
Spke with pt and family. All are in agreement pt will need a SNF. Pt would like to go to [facility] in [place]. Showed son how to look up SNFs on medicare.gov for ratings. I will send the chart to Frida at [facility].
--- NOTE | 2022-06-20 14:32 | NUR ---
Scheduled medications administered- pt denies having pain, forgetful and difficult to redirect at this time, ultimately redirectable and able to take pills with water. Pt family concerned about patient's forgetfulness. Pt's bilat upper extremities generally edematous. IVF infusing.
--- NOTE | 2022-06-20 14:39 | NUR ---
Discussed POC with carlos Lane PA. New orders received to DC IVF, DC tramadol, and collect UA sample, read back to verify and orders entered.
--- NOTE | 2022-06-20 15:11 | NUR ---
CONNECTED WITH [facility]- HAYDEE VISITED AND WILL PLAN ON SUN ALSO
--- NOTE | 2022-06-20 15:30 | NUR ---
Chart faxed to Frida at [facility]. Recieved reply they do not take insurance and are declining this pt. Returned to room and son would like me to check with Luke Sloan. Chart faxed to Colleen at [facility].
--- NOTE | 2022-06-20 15:38 | NUR ---
Phone call with Jeannie Fabian regarding pt UA results. Order for PO ABX received, read back to verify and entered.
--- NOTE | 2022-06-20 16:30 | NUR ---
Scheduled medications and new PO ABX administered. Pt transfered with 2PA, FWW and gait belt to bed. Pt confused and requiring frequent redirection. Morton catheter removed. Dry attends with peripad in place. Pt denies pain at this time. POC reviewed with daughter who is agreeable. All questions answered. Call light in reach.
--- NOTE | 2022-06-20 18:22 | NUR ---
Scheduled medications given, pt reports no pain. Pt resting in bed with no needs. Bed alarm, side rails up for safety, pt close to nurses station and curtain open. Call light in reach.
--- NOTE | 2022-06-20 19:12 | NUR ---
SHIFT REPORT RECEIVED FROM DAYSHIFT NEDA CESAR AT BEDSIDE, pt AWAKE AND RESTING IN BED, BOARD UPDATED. ACTICOAT TO RIGHT HIP INTACT, FEW OLD SHADOWING SPOTS NOTED. CALL LIGHT IN REACH, DENIES NEEDS OR CONCERNS.
--- NOTE | 2022-06-20 22:08 | NUR ---
ASSESSMENT COMPLETE, SCHEDULED MEDS CRUSHED AND GIVEN IN APPLESAUCE, PER SHIFT REPORT, pt CHEWS MEDS AT TIMES. EVENING MEDS GIVEN-SEE EMAR OKAYED TO CRUSH PER TELEPHARMACY. pt ATTENDS DRY, pt DENIES NEED TO VOID, BLADDER SCANNED, HIGHEST VALUE 111 MLS-DISCUSSED WITH WIRELESS DEVELOPMENT MANAGERNEDA MARTINEZ WILL CONTINUE TO MONITOR AND ENCOURAGE PO INTAKE. WITH MED PASS pt TOLERATED APPROX 150MLS INTAKE. NO DISTRESS NOTED, BUT OCCASSIONAL COUGH NOTED, IMPROVED W/ EDUCATION ON TUCKING CHIN. NO CHANGE TO ACTICOAT SHADOWING. CALL LIGHT IN REACH, MARIUMYN NOTED TO COCCYX. NO SIGNS OF SKIN BREAKDOWN NOTED AROUND COCCYX. SCD'S AND PATRICE HOSE REMAINS IN PLACE, BILATERAL WEAK PULSE NOTED IN FEET. CALL LIGHT IN REACH. ICE PACK TO RIGHT HIP.
--- NOTE | 2022-06-21 00:36 | NUR ---
ASSISTED PT. NURSE WITH PT. TRANSFER TO BSC. ASSISTED TRANSFER BACK TO BED AFTER PT. FAILED TO VOID. NO OTHER IMMEDIATE NEEDS AT THIS TIME.
--- NOTE | 2022-06-21 00:39 | NUR ---
CALL LIGHT ANSWERED, pt VERBALIZES NEED TO VOID. pt UP 2-3PA WITH GAIT BELT AND FWW. pt STAND PIVOT TO BSC, UNABLE TO VOID AFTER TURNING ON WATER FACET AND VERBAL PROMPTING. pt AGAIN BLADDER SCANNED, RESULT GREATER THAN 216 MLS. NO DISTRESS NOTED. pt BACK IN BED, DISUCSSED WITH E COMMERCE MANAGER JUAN. PER E COMMERCE MANAGER, CONTINUE TO MONITOR, pt MAKING URINE. WILL PLACE CONSTANTINO IF/WHEN pt MEETS PARAMETERS. CALL LIGHT IN REACH.
--- NOTE | 2022-06-21 05:30 | NUR ---
pt YET TO VOID, ATTENDS REMAIN DRY PER NEDA TURNER. pt BLADDER SCANNED FOR 311, DR MCCRARY UPDATED AT THIS TIME. pt HAD APPROX 300MLS PO INTAKE THROUGHTOUT THE SHIFT AND WAS ENCORUAGED TO DRINK. pt HAS REMAINED SALINE LOCKED THIS SHIFT, TELEPHONE ORDER READ BACK TO STRAIGHT CATH X1. PATIENT REGISTRATION MANAGERNEDA MARTINEZ UPDATED.
--- NOTE | 2022-06-21 06:36 | NUR ---
[facility] [phone], SEE PAPER CHARTING.
--- NOTE | 2022-06-21 06:50 | NUR ---
DUE TO BLADDER SCAN READING OF 311 AND MD ORDERS, STRAIGHT CATH WAS PERFORMED. PT TOLERATED WELL AND HIP WAS IN SECURED POSITION DURING PROCEDURE. OUTPUT WAS 325 ML. PT IS NOW IN BED WITH DEPENDS ON AND CALL LIGHT WITHIN REACH. WILL CONTINUE TO MONITOR.
--- NOTE | 2022-06-21 07:02 | NUR ---
scheduled 0600 medds given for reported 3/10 pain in right hip, see emar. pt resting in bed on her back, with hob elevated. call light in reach. bed alarm on.
--- NOTE | 2022-06-21 07:51 | NUR ---
Report received from Malathi RED. Pt resting in bed with eyes closed, even and unlabored respirations noted. No needs at this time, call light in reach.
--- NOTE | 2022-06-21 07:56 | NUR ---
THIS RN AGREES WITH THE CHARTING MADE BY ZACHARY ESTEBAN THIS SHIFT.
--- NOTE | 2022-06-21 08:49 | NUR ---
SPOKE WITH DAUGHTER AND SON IN PATIENT'S ROOM YESTERDAY AFTERNOON. PATIENT WAS CONFUSED. DAUGHTER MENTIONED WHAT PATIENT WOULD LIKE FOR DINNER AND BREAKFAST. SHE DRINKS EITHER ACTIVIA, BOOST, OR MUSCLE MILK (NO TARIQ. STRAWBERRY IS HER FAVORITE) AT HOME. PATIENT PREFERS ALMOND MILK TO REGULAR MILK. SHE ALSO DOES NOT LIKE ONIONS OR MUSHROOMS OR COFFEE. DAUGHTER SAID NOT TO SEND AN ENSURE SHAKE AT BREAKFAST BUT TO SEND ONE AT LUNCH AND DINNER. PREFERENCES IN MEAL IQ. WILL CONTINUE TO MONITOR PATIENT ON A REGULAR DIET.
--- NOTE | 2022-06-21 09:25 | NUR ---
Conveyor Feeder Marleen RN in room to administer meds. This RN at bedside to assess patient, pt states "not feeling very well, they took my catheter out and now I have to go to the bathroom", this RN and SONG Little assisted pt to BSC with FWW for void. Pt daughter at bedside, all questions answered. R hip dressing c/d/i. pt denies pain.
--- NOTE | 2022-06-21 09:49 | NUR ---
Pt finished using BSC, 150 ml void, back to bed with 2PA, pt denies pain. Teds/scds in place, heel protectors.
--- NOTE | 2022-06-21 10:00 | NUR ---
In and spoke with daughter. Pt will go to [facility] tomorrow. UPdated to what pt will need to take with her for clothing and belonging. Pt sleeping and not awakened.
--- NOTE | 2022-06-21 11:35 | NUR ---
Pt resting in bed, denies pain or needs. Pt is able to verify her age and where she is. Daughter at bedside. Pt on room air, saline locked. Call light in reach.
--- NOTE | 2022-06-21 12:13 | NUR ---
pt reporting nausea, medicated with 4mg zofran
--- NOTE | 2022-06-21 13:33 | NUR ---
Scheduled medications administered, assessment complete. Pt resting in bed, watching tv, visiting with her daughter. Pt has no needs a this time.
--- NOTE | 2022-06-21 14:00 | NUR ---
Call from Transport asking if pt transport time can change to 11:30 from !2:30. Texted Colleen at [facility] and notified they are ok with this time change.
--- NOTE | 2022-06-21 14:33 | NUR ---
ARRANGED TO HAVE FR HUBBARD ORACLE DATABASE CONSULTANT TO PT AGAIN TODAY. WILL AGAIN FOLLOW
--- NOTE | 2022-06-21 15:01 | NUR ---
Pt medicated with PRN lactulose, pt c/o abd discomfort r/t constipation, last BM 06/18/22.
--- NOTE | 2022-06-21 15:38 | NUR ---
RT COLLECTED RAPID COVID 19 SWAB AT THIS TIME WITH NO COMPLICATIONS.
--- NOTE | 2022-06-21 18:05 | NUR ---
Pt medicated with scheduled toradol. IV flushes WNL. Pt denies pain and needs, eating dinner with her daughter at bedside.
--- NOTE | 2022-06-21 19:20 | NUR ---
[facility]. pt awake and resting in bed, acticoat dressing loose on distal end, scot gutierrez to call md. no needs verbalized at this time. call light in reach.
--- NOTE | 2022-06-21 19:27 | NUR ---
R hip actecote dressing beginning to come loose, incision visualized below, well approximated with no drainage noted. Jeannie Fabian notified and orders to replace dressing, passed to Malathi RED.
--- NOTE | 2022-06-21 20:15 | NUR ---
call light answered, pt up 2pa with bsc to void, incontinent of urine with additional 80mls voided. molina care doen and clean attends in place. pt more weak and required more prompting coming back to bed compared to going to bsc. reports some adb pain and reports passing gas, recently given consitpation med on dayshi, will monitor. call light in reach.
--- NOTE | 2022-06-21 21:40 | NUR ---
ASSESSMENT COMPLETE, SCHEDULED MEDS GIVEN (SEE EMAR)- pt TOLERATED WELL AND SWALLOWED EACH MED WHOLE IN WATER. HAD SOME DIFFICULTY WITH MAGNESIUM PILL (WAS SPILT PER pt REQUEST). PER CLINICAL JUDGEMENT, LAST MEDICATION (PO CIPRO) WAS CRUSHED AND IN APPLESAUCE. ARTIFICAL TEARS PROVIDED PER pt REQUEST. pt REPORTED SOME SOB UPON ENTERING ROOM. VSS AND LUNG SOUNDS CLEAR. pt REASSURED, HOB ELEVATED FOR COMFORT. pt REPORTS INTERVENTIONS IMPROVED AND FEELS SOB HAS NEARLY RESOLVED. WLL CONITNUE TO MONITOR. CALL LIGHT IN REACH. ASH HANDLER KATIE TO REPLACE ACTICOAT DRESSING TO RIGHT HIP D/T LOOSE DRESSING. PILLOWS TO RIGHT SIDE, HIP REMAINS IN ALIGNMENT.
--- NOTE | 2022-06-21 22:00 | NUR ---
DRESSING SLIGHTLY LIFTED ON RT HIP INCISION SITE, PER NEW ACTICOAT DRESSING WAS PLACED AFTER WOUND CLEANSING WITH WOUND CLEANING SPRAY/GAUZE, PT TOLERATED WELL WITH NO COMPLAINTS OF PAIN. ICE PACK AND PILLOW PLACED FOR SUPPORT AND COMFORT FOR PT HIP. WARM BLANKET PLACED ON PT, CALL LIGHT WITHIN REACH, BED ALARM ON, NO FURTHER NEEDS AT THIS TIME. WILL CONTINUE TO MONITOR.
--- NOTE | 2022-06-22 00:15 | NUR ---
rounded on pt, pt resting quietly in bed with eyes closed, on ra. rr even and unlabored. no distress noted, pt awoke to voice- reports little pain in right hip. prn ice to right hip, acticoat dressing c/d/i. reports pain in abd, pt yet to have a bm. bt remains active and pt has been reporting gas. continuing to monitor. pt incontinent of rune, complete bed change completed, pt boosted in bed and repositoned-maintaining hip alignment. hips floated. allevyvn remains in place to coccyx. molina care done and call light in reach. scd's and gal hose in place. oral temp 98.0. will continue to monitor.
--- NOTE | 2022-06-22 01:00 | NUR ---
3 pa. 2pbryson ellison and this pediatric acute care unit nurse removed the egg crate mattres and changed the bed linen. placed patient's fresh attends. warm blanket provided. call light within reach.
--- NOTE | 2022-06-22 01:24 | NUR ---
ANSWERED PT CALL LIGHT REGARDING PT FEELING LIKE SHE NEEDED TO URINATE. PT REFUSES TO GET OUT OF BED AT THIS TIME. PT FEELS THOUGH SHE IS "TOO WEAK" AND RECENTLY INCONTINENT OF URINE. DISCUSSED WITH PRIMARY RN NICO, CLINICAL JUDGEMENT AND REQUEST OF PRIMARY RN, SHAGUFTAWILOTUS PLACED. PT EDUCATED ON PUREWICK DEVICE. CALL LIGHT IN PLACE.
--- NOTE | 2022-06-22 01:51 | NUR ---
SCHEDULED 0200 MED GIVEN, SEE EMAR. MED GIVEN IN APPLESAUCE- NO ISSUES SWALLOWING NOTED. pt ALSO GIVEN PRN LACTULOSE D/T CONSTIPATION. SCD'S, PATRICE HOSE, AND HEEL PROTECTORS IN PLACE. WEAK BILATERAL PEDAL PULSES NOTED, NO CAHNGE SINCE START OF SHIFT. +2 DEPENDENT EDEMA TO LUE-UNCHANGED SINCE START OF SHIFT. +1 TO RUE. NO ADDITIONAL NEEDS, CALL LIGHT IN REACH.
--- NOTE | 2022-06-22 03:30 | NUR ---
pt on bsc for several minutes and unable to have bm, states, "i feel it's right there". easily visible stool noted, hard and pebble like. pt unable to pass independently. unpaid intern in room and completed digital stool disimpaction. pt tolerated well and large hard bm noted. unmeasured void x1. pt reports relief and is now back in bed, call light in reach.
--- NOTE | 2022-06-22 05:02 | NUR ---
pt FELT CONSTIPATED THIS SHIFT, PRN LACTULOSE GIVEN X1 AND SCHEDULED SENNA GIVEN. pt REQUIRED ASSISTANCE WITH IMPACTION, PERFORMED BY FURNITURE SALES CONSULTANT. LARGE HARD PEBBLE STOOL NOTED. pt INCONTINENT AT TIMES WITH URINE. 2PA WITH GAIT BELT AND FWW TO BS. SCD'S, PATRICE HOSE, AND HEEL PROTECTORS IN PLACE. ACTICOAT TO RIGHT HIP- REPLACED AT START OF SHIFT PER MD ORDERS, PRN ICE. SCHEDULED TORADOL AND TYLENOL FOR PAIN CONTROL.
--- NOTE | 2022-06-22 07:09 | NUR ---
PERFORMED SCHEDULED MED PASS (SEE EMAR). PT TOLERATED WELL WITH APPLESAUCE. PT HAD INCONTINENCE EPISODE. DIESEL PILE HAMMER OPERATOR SENT TO ROOM TO CHANGE PT. PT RESTING IN BED WITH CALL LIGHT WITHIN REACH.
--- NOTE | 2022-06-22 07:51 | NUR ---
Patient in bed resting, eyes closed, respirations even/non labored. Patient has no notable distress. CMS intact to Right leg. Right hip dressing is CDI. PATRICE/SCD's intact.
--- NOTE | 2022-06-22 08:25 | NUR ---
Patient awake watching tv, a&ox3, no distress. Admin One tab [place] 7.05/325mg po for pain 5/10. Right hip dressing is CDI. Patient denies needs.
[2022-06-22] MEDS ORDERED: HYDROCODON-ACE1 EA11 PO (08:34)
--- NOTE | 2022-06-22 09:49 | NUR ---
SCHEDULED MED PROVIDED. NO OTHER NEEDS AT THIS TIME. CALL LIGHT IN REACH.
--- NOTE | 2022-06-23 09:20 | OR ---
[facility] [address] [place], [place] [address] Signed DATE OF OPERATION: 06/19/2022 SURGEON: Shyla Parekh MD PREOPERATIVE DIAGNOSIS: Right femoral neck/intertrochanteric fracture. POSTOPERATIVE DIAGNOSIS: Right femoral neck/intertrochanteric fracture. PROCEDURE PERFORMED: Right bipolar hemiarthroplasty with open reduction and internal fixation trochanteric fragments. DOMESTIC FREIGHT FORWARDER: Jeannie Jameson PA-C. Jeannie was present and critical for all portions of procedure. ANESTHESIA: Spinal. BLOOD LOSS: 200 mL. IMPLANTS: Abbe Echo fracture stem size 8, 46 mm bipolar and +6 head. Also, a 1.7 mm Synthes cable. BRIEF HISTORY: Mauri is an 86-year-old female, who suffered a ground level fall three days ago. She was brought to the emergency department where radiographs revealed a displaced intertrochanteric/femoral neck fracture. Risks and benefits of operative treatment were discussed with her. Because of her Parkinson disease, severe osteopenia and need to walk on this, we elected to go with a bipolar hemiarthroplasty rather than open reduction and internal fixation. This was discussed with her extensively. She understood and wished to proceed. PROCEDURE IN DETAIL: Once consent was obtained, she was taken to the operating room. After adequate anesthesia, she was placed on the operating room table in the left lateral decubitus Electronically Signed By: SHYLA PAREKH MD 06/23/22 0920 PATIENT NAME: MAURI VALDES OPERATIVE REPORT DATE OF : 35 REPORT #: [id number] PHYSICIAN: SHYLA PAREKH MD PCP: JODY CROCKETT MD REPORT IS CONFIDENTIAL AND NOT TO BE RELEASED WITHOUT AUTHORIZATION [facility] [address] [place], [place] [address] Signed position. An axillary roll was placed. All downside pressure points were well padded. The hip was prepped and draped in a standard sterile fashion. The hip was approached through a standard anterior lateral approach. This was carried through the skin and subcutaneous tissue. IT band was divided longitudinally. The vastus lateralis was divided along the anterior margin the femur from the tip of the trochanter distally. It was elevated subperiosteally around anteriorly. We were unable to palpate the lesser trochanter at all. The gluteus medius and capsule were split and elevated off the femoral neck allowing visualization of the hip. Once we were able to do this, then we placed a 5-0 Schanz pin in the femoral head and using a combination of longitudinal traction and external rotation we were able to dislocate the hip, leaving it still intact along the anterior margin in the fracture line. We then made a femoral neck cut and passed the ball off the table. The calcar and corresponding anterior and posterior cortices were fractured off. We reduced these and centered fashion around the calcar and the lateral femoral cortex. This was tightened down and held in place. Once this was accomplished, we then measured the femoral head to 46. The 46 was quite well fitting. We then turned our attention to proximal femur and opened it with a [employer] cutter followed by the Antwon awl. We then sequentially broached starting with a 7 up to a 10. This was quite well fitting. We did redo the femoral cut a little bit. Once this was accomplished, we elected to go with an 8 stem going 3 mm below giving us a 1.5 mm cement margin. The trial was removed and the proximal femur was cleaned using the pulse lavage. We then placed the cement restrictor 2 cm distal to the stem. The femoral canal was then cleaned again with pulse lavage and packed with a dry Ray-Naomi. We then mixed the cement once it reached proper consistency, was injected in the canal and pressurized. We then placed the stem into the canal and held it in position. Once this was accomplished and the cement had hardened, all excess cement was removed. The -3 head was initially trialed, however, it was too short. We went to a +6 and that was found to be quite well fitting with good leg lengths. We placed a +6 head and a 46 mm cup and impacted that on to the femoral stem and then reduced the hip. She had excellent range of motion with no impingement. The wound was copiously irrigated with normal saline throughout the procedure, a total of 3 L were used. An Irrisept soak was done in the middle. The capsule was closed using #1 Vicryl. The vastus and IT bands were closed independently using #2 Stratafix. Subcutaneous tissue with 0 Stratafix and skin with rigoberto. The wound was dressed with an Acticoat-7 dressing. She was awakened, taken to the recovery room in satisfactory condition. All sponge, needle, and instrument counts were correct. Shyla Parekh MD Electronically Signed By: SHYLA PAREKH MD 06/23/22919 PATIENT NAME: MAURI VALDES OPERATIVE REPORT DATE OF : 35 REPORT #: [id number] PHYSICIAN: SHYLA PAREKH MD PCP: JODY CROCKETT MD REPORT IS CONFIDENTIAL AND NOT TO BE RELEASED WITHOUT AUTHORIZATION [facility] [address] [place], [place] [address] Signed /MODL /[id number] Copies: ~ Electronically Signed By: SHYLA PAREKH MD 06/23/22919 PATIENT NAME: MAURI VALDES OPERATIVE REPORT DATE OF : 35 REPORT #: [id number] PHYSICIAN: SHYLA PAREKH MD PCP: JODY CROCKETT MD REPORT IS CONFIDENTIAL AND NOT TO BE RELEASED WITHOUT AUTHORIZATION
== END 2022-06-22 11:30 | DRG 522 ==
LOC: ED 11:38 → MS 13:28
PROVIDERS: ADMIT Specialist; ATTEND Specialist
PROC: 0SRR0J9 Replacement of Right Hip Joint, Femoral Surface with Synthetic Substitute, Cemented, Open Approach (ICD-10-PCS; principal; 2022-06-19 09:31)
DX: S72.141A Displaced intertrochanteric fracture of right femur, initial encounter for closed fracture (principal); N39.0 Urinary tract infection, site not specified; Z20.822 Contact with and (suspected) exposure to COVID-19; G20 Parkinson's disease; F02.80 Dementia in other diseases classified elsewhere, unspecified severity, without behavioral disturbance, psychotic disturbance, mood disturbance, and anxiety; E55.9 Vitamin D deficiency, unspecified; E03.9 Hypothyroidism, unspecified; K59.09 Other constipation; I48.0 Paroxysmal atrial fibrillation; M81.0 Age-related osteoporosis without current pathological fracture; Z95.0 Presence of cardiac pacemaker; Z90.49 Acquired absence of other specified parts of digestive tract; Z90.710 Acquired absence of both cervix and uterus; Z88.0 Allergy status to penicillin; Z88.1 Allergy status to other antibiotic agents; Z88.2 Allergy status to sulfonamides; Z88.8 Allergy status to other drugs, medicaments and biological substances; Z88.5 Allergy status to narcotic agent; Z91.048 Other nonmedicinal substance allergy status; Z91.030 Bee allergy status; Z79.01 Long term (current) use of anticoagulants; Z79.899 Other long term (current) drug therapy; W18.39XA Other fall on same level, initial encounter; Y92.129 Unspecified place in nursing home as the place of occurrence of the external cause
CPT/HCPCS: 01212; 01214; 36415; 51702; 71045; 72170; 73502; 80048; 80053; 81001; 83735; 85025; 87502; 93005; 93010; 97110; 97162; 97530; 99285-25; A9270; C1713; C1776; C9803; G0480; J1100; J1170; J1885; J2001; J2250; J2405; J2704; J2765; J3010; J7030; J7040; J7121; U0003